=== PATIENT | female | born 1980 | race Caucasian/White ===

== ENCOUNTER 2017-08-04 10:26 | Emergency (ER) | payer OTHER ==
[~2017-08-04] VITALS: Ht 175.3 cm; Wt 119.7 kg
[~2017-08-04 10:26] MED LIST: ORPH100T PO; TRAM1TAB98 PO
[2017-08-04] MEDS ORDERED: ULTRACET PO (13:00)
[2017-08-04] MEDS ORDERED: PERCOCET 5-3251 EACH PO ×2 (13:01→13:02)
== END 2017-08-04 13:16 | disposition home or self-care (01) ==
LOC: ER 10:26
DX: S93.602A Unspecified sprain of left foot, initial encounter (principal); W18.39XA Other fall on same level, initial encounter; Y93.89 Activity, other specified; Y92.098 Other place in other non-institutional residence as the place of occurrence of the external cause; Y99.8 Other external cause status

== ENCOUNTER 2018-03-30 08:32 | Emergency (ER) | payer OTHER ==
[~2018-03-30] VITALS: Ht 175.3 cm; Wt 116.1 kg
[~2018-03-30 08:32] MED LIST changes: +PERCOCET 5-3251 EACH PO; +ULTRACET PO
== END 2018-03-30 12:23 | disposition home or self-care (01) ==
LOC: ER 08:32
DX: B34.9 Viral infection, unspecified (principal)

== ENCOUNTER 2018-07-01 05:43 | Emergency (ER) | payer OTHER ==
[~2018-07-01] VITALS: Ht 175.3 cm; Wt 68.0 kg
== END 2018-07-01 10:53 | disposition home or self-care (01) ==
LOC: ER 05:43
DX: R13.19 Other dysphagia (principal)

== ENCOUNTER → 2018-09-23 | Outpatient (CLI) | payer OTHER | END | disposition home or self-care (01) | LOC: TOM 09:58 | DX: N28.89 Other specified disorders of kidney and ureter (principal); N23 Unspecified renal colic ==

== ENCOUNTER 2018-09-24 10:01 | Emergency (ER) | payer OTHER ==
[~2018-09-24] VITALS: Ht 175.3 cm; Wt 115.2 kg
== END 2018-09-24 22:24 | disposition home or self-care (01) ==
LOC: ER 10:01
DX: K58.9 Irritable bowel syndrome, unspecified (principal)

== ENCOUNTER 2018-12-01 08:24 | Outpatient (CLI) | payer OTHER | END 2018-12-01 08:38 | disposition home or self-care (01) | LOC: NUCLEAR 08:24 | DX: K80.80 Other cholelithiasis without obstruction (principal) | CPT/HCPCS: 78227; A9537 ==

== ENCOUNTER → 2018-12-13 | Outpatient (CLI) | payer OTHER | END | disposition home or self-care (01) | LOC: SONOGRAMA 08:32 | DX: E04.2 Nontoxic multinodular goiter (principal) ==

== ENCOUNTER 2019-02-25 10:23 | Emergency (ER) | payer OTHER ==
[~2019-02-25] VITALS: Ht 175.3 cm; Wt 97.1 kg
== END 2019-02-25 12:19 | disposition home or self-care (01) ==
LOC: ER 10:23
DX: S20.222A Contusion of left back wall of thorax, initial encounter (principal); S20.221A Contusion of right back wall of thorax, initial encounter; V49.9XXA Car occupant (driver) (passenger) injured in unspecified traffic accident, initial encounter; Y93.89 Activity, other specified; Y92.488 Other paved roadways as the place of occurrence of the external cause; Y99.8 Other external cause status

== ENCOUNTER 2019-04-06 08:01 | Outpatient (CLI) | payer OTHER | END 2019-04-06 15:00 | disposition home or self-care (01) | LOC: LAB 08:01 | DX: N39.0 Urinary tract infection, site not specified (principal) ==

== ENCOUNTER 2019-08-11 07:14 | Outpatient (CLI) | payer OTHER | END 2019-08-11 08:04 | disposition home or self-care (01) | LOC: SONOGRAMA 07:14 | DX: E04.1 Nontoxic single thyroid nodule (principal) ==

== ENCOUNTER 2019-08-11 07:43 | Outpatient (CLI) | payer OTHER | END 2019-08-11 07:56 | disposition home or self-care (01) | LOC: LAB 07:43 | DX: I10 Essential (primary) hypertension (principal); E11.65 Type 2 diabetes mellitus with hyperglycemia; E03.8 Other specified hypothyroidism; E78.49 Other hyperlipidemia; E55.9 Vitamin D deficiency, unspecified ==

== ENCOUNTER 2019-11-30 06:50 | Outpatient (CLI) | payer OTHER | END 2019-11-30 07:54 | disposition home or self-care (01) | LOC: RAD 06:50 | DX: E04.1 Nontoxic single thyroid nodule (principal); R10.84 Generalized abdominal pain; K21.9 Gastro-esophageal reflux disease without esophagitis ==

== ENCOUNTER 2019-12-08 06:05 | Emergency (ER) | payer OTHER ==
[~2019-12-08] VITALS: Ht 175.3 cm; Wt 80.7 kg
== END 2019-12-08 10:28 | disposition home or self-care (01) ==
LOC: ER 06:05
DX: R00.2 Palpitations (principal)

== ENCOUNTER → 2019-12-15 06:32 | Outpatient (CLI) | payer OTHER | END | disposition home or self-care (01) | LOC: LAB 06:32 | PROVIDERS: ATTEND Internal Medicine Sports Medicine | DX: E05.90 Thyrotoxicosis, unspecified without thyrotoxic crisis or storm (principal) ==

== ENCOUNTER 2019-12-19 12:23 | Outpatient (CLI) | payer OTHER | END 2019-12-19 12:31 | disposition home or self-care (01) | LOC: LAB 12:23 | PROVIDERS: ATTEND Internal Medicine Sports Medicine | DX: N30.00 Acute cystitis without hematuria (principal) ==

== ENCOUNTER 2019-12-26 08:57 | Outpatient (CLI) | payer OTHER | END 2019-12-26 09:27 | disposition home or self-care (01) | LOC: NUCLEAR 08:57 | PROVIDERS: ATTEND Internal Medicine Sports Medicine | DX: E05.80 Other thyrotoxicosis without thyrotoxic crisis or storm (principal) | CPT/HCPCS: 78012; A9531 ==

== ENCOUNTER 2019-12-27 08:34 | Outpatient (CLI) | payer OTHER | END 2019-12-27 08:43 | disposition home or self-care (01) | LOC: NUCLEAR 08:34 | PROVIDERS: ATTEND Internal Medicine Sports Medicine | DX: E05.80 Other thyrotoxicosis without thyrotoxic crisis or storm (principal) | CPT/HCPCS: 78013; A9512 ==

== ENCOUNTER 2020-02-08 06:18 | Outpatient (CLI) | payer OTHER | END 2020-02-08 06:44 | disposition home or self-care (01) | LOC: LAB 06:18 | PROVIDERS: ATTEND Internal Medicine Sports Medicine | DX: E04.1 Nontoxic single thyroid nodule (principal); E05.90 Thyrotoxicosis, unspecified without thyrotoxic crisis or storm; E04.8 Other specified nontoxic goiter ==

== ENCOUNTER 2020-03-06 06:24 | Outpatient (CLI) | payer OTHER | END 2020-03-06 11:44 | disposition home or self-care (01) | LOC: LAB 06:24 | DX: I87.2 Venous insufficiency (chronic) (peripheral) (principal); M79.81 Nontraumatic hematoma of soft tissue; Z13.1 Encounter for screening for diabetes mellitus; Z13.220 Encounter for screening for lipoid disorders; E04.1 Nontoxic single thyroid nodule; Z13.89 Encounter for screening for other disorder ==

== ENCOUNTER 2020-03-06 07:04 | Outpatient (CLI) | payer OTHER | END 2020-03-06 10:05 | disposition home or self-care (01) | LOC: NUCLEAR 07:04 | DX: I87.2 Venous insufficiency (chronic) (peripheral) (principal) ==

== ENCOUNTER 2020-07-20 06:43 | Outpatient (CLI) | payer OTHER | END 2020-07-20 07:56 | disposition home or self-care (01) | LOC: LAB 06:43 | PROVIDERS: ATTEND Internal Medicine Sports Medicine | DX: D64.89 Other specified anemias (principal); E11.9 Type 2 diabetes mellitus without complications; E78.2 Mixed hyperlipidemia; E03.8 Other specified hypothyroidism; I10 Essential (primary) hypertension ==

== ENCOUNTER 2020-09-14 06:30 | Outpatient (CLI) | payer OTHER | END 2020-09-14 06:36 | disposition home or self-care (01) | LOC: LAB 06:30 | DX: R30.0 Dysuria (principal) ==

== ENCOUNTER 2021-01-09 08:00 | Outpatient (CLI) | payer OTHER | END 2021-01-09 08:30 | disposition home or self-care (01) | LOC: PPH VACUNA 08:00 | DX: Z23 Encounter for immunization (principal) ==

== ENCOUNTER 2021-01-28 08:00 | Outpatient (CLI) | payer OTHER | END 2021-01-28 08:30 | disposition home or self-care (01) | LOC: PPH VACUNA 08:00 | DX: Z23 Encounter for immunization (principal) ==

== ENCOUNTER 2021-01-28 09:21 | Outpatient (CLI) | payer OTHER | END 2021-01-28 09:34 | disposition home or self-care (01) | LOC: SONOGRAMA 09:21 | DX: E04.1 Nontoxic single thyroid nodule (principal); E03.8 Other specified hypothyroidism; R10.84 Generalized abdominal pain ==

== ENCOUNTER → 2021-04-19 07:21 | Outpatient (CLI) | payer OTHER | END | disposition home or self-care (01) | LOC: LAB 07:21 | DX: R23.3 Spontaneous ecchymoses (principal) ==

== ENCOUNTER → 2021-04-29 11:11 | Outpatient (CLI) | payer OTHER | END | disposition home or self-care (01) | LOC: LAB 11:11 | DX: M79.81 Nontraumatic hematoma of soft tissue (principal) ==

== ENCOUNTER 2021-05-07 07:19 | Outpatient (CLI) | payer OTHER | END 2021-05-07 07:53 | disposition home or self-care (01) | LOC: MAMO-SONO 07:19 | DX: Q51.818 Other congenital malformations of uterus (principal); N64.89 Other specified disorders of breast; Z12.31 Encounter for screening mammogram for malignant neoplasm of breast ==

== ENCOUNTER 2021-05-31 08:17 | Emergency (ER) | payer OTHER ==
[~2021-05-31] VITALS: Ht 175.3 cm; Wt 99.8 kg
[2021-05-31] MEDS ORDERED: MACRODANTIN100 M1 PO (12:47)
[2021-05-31] MEDS ORDERED: PYRIDIUM DS200 MG PO (12:47)
== END 2021-05-31 12:57 ==
LOC: ER 08:17
DX: N39.0 Urinary tract infection, site not specified (principal)

== ENCOUNTER 2021-06-13 07:07 | Outpatient (CLI) | payer OTHER ==
[~2021-06-13 07:07] MED LIST changes: +MACRODANTIN100 M1 PO; +PYRIDIUM DS200 MG PO
== END 2021-06-13 07:18 | disposition home or self-care (01) ==
LOC: LAB 07:07
PROVIDERS: ATTEND Internal Medicine Sports Medicine
DX: E55.9 Vitamin D deficiency, unspecified (principal)

== ENCOUNTER 2021-07-01 10:58 | Emergency (ER) | payer OTHER ==
[~2021-07-01] VITALS: Ht 175.3 cm; Wt 99.3 kg
== END 2021-07-01 14:04 | disposition home or self-care (01) ==
LOC: ER 10:58
DX: M25.561 Pain in right knee (principal)

== ENCOUNTER 2021-08-01 09:00 | Outpatient (CLI) | payer OTHER | END 2021-08-01 09:15 | disposition home or self-care (01) | LOC: PPH VACUNA 09:00 | PROVIDERS: ATTEND Emergency Medicine Pediatric Emergency Medicine | DX: Z23 Encounter for immunization (principal) ==

== ENCOUNTER 2021-08-14 19:20 | Emergency (ER) | payer OTHER ==
[~2021-08-14] VITALS: Ht 175.3 cm; Wt 98.4 kg
[2021-08-14] MEDS ORDERED: PYRIDIUM100 MG PO (23:09)
[2021-08-14] MEDS ORDERED: CIPRO500 MG PO (23:09)
== END 2021-08-15 | disposition home or self-care (01) ==
LOC: ER 19:20
DX: N39.0 Urinary tract infection, site not specified (principal); Z88.2 Allergy status to sulfonamides; Z88.6 Allergy status to analgesic agent

== ENCOUNTER 2021-08-22 06:55 | Outpatient (CLI) | payer OTHER ==
[~2021-08-22 06:55] MED LIST changes: +CIPRO500 MG PO; +PYRIDIUM100 MG PO
== END 2021-08-22 08:12 | disposition home or self-care (01) ==
LOC: MRI 06:55
DX: M25.561 Pain in right knee (principal)
CPT/HCPCS: 73721

== ENCOUNTER 2021-08-29 08:01 | Outpatient (CLI) | payer OTHER | END 2021-08-29 08:29 | disposition home or self-care (01) | LOC: SONOGRAMA 08:01 | DX: R22.42 Localized swelling, mass and lump, left lower limb (principal) ==

== ENCOUNTER 2021-09-16 07:32 | Emergency (ER) | payer OTHER ==
[~2021-09-16] VITALS: Ht 175.3 cm; Wt 97.1 kg
== END 2021-09-16 12:16 | disposition home or self-care (01) ==
LOC: ER 07:32
DX: B34.9 Viral infection, unspecified (principal); Z88.6 Allergy status to analgesic agent; Z88.2 Allergy status to sulfonamides; Z20.822 Contact with and (suspected) exposure to COVID-19

== ENCOUNTER 2021-12-06 07:22 | Outpatient (CLI) | payer OTHER | END 2021-12-06 08:18 | disposition home or self-care (01) | LOC: SONOGRAMA 07:22 | PROVIDERS: ATTEND Internal Medicine Sports Medicine | DX: E03.9 Hypothyroidism, unspecified (principal) ==

== ENCOUNTER → 2021-12-06 | Outpatient (CLI) | payer OTHER | END | disposition home or self-care (01) | LOC: LAB 06:23 | DX: E55.9 Vitamin D deficiency, unspecified (principal); D64.9 Anemia, unspecified; E78.2 Mixed hyperlipidemia; E11.9 Type 2 diabetes mellitus without complications; E03.8 Other specified hypothyroidism; I10 Essential (primary) hypertension ==

== ENCOUNTER 2022-03-24 12:42 | Emergency (ER) | payer OTHER ==
[~2022-03-24] VITALS: Ht 175.3 cm; Wt 98.9 kg
== END 2022-03-24 15:45 | disposition home or self-care (01) ==
LOC: ER 12:42
DX: M25.562 Pain in left knee (principal); Z88.6 Allergy status to analgesic agent; Z88.8 Allergy status to other drugs, medicaments and biological substances

== ENCOUNTER 2022-06-23 06:25 | Outpatient (CLI) | payer OTHER | END 2022-06-23 06:26 | disposition home or self-care (01) | LOC: LAB 06:25 | DX: D64.9 Anemia, unspecified (principal); E11.9 Type 2 diabetes mellitus without complications; E78.2 Mixed hyperlipidemia; I10 Essential (primary) hypertension; E03.8 Other specified hypothyroidism; E55.9 Vitamin D deficiency, unspecified ==

== ENCOUNTER 2022-07-17 06:54 | Outpatient (CLI) | payer OTHER | END 2022-07-17 07:14 | disposition home or self-care (01) | LOC: RAD 06:54 | DX: Z12.31 Encounter for screening mammogram for malignant neoplasm of breast (principal); N63.0 Unspecified lump in unspecified breast; M25.562 Pain in left knee | CPT/HCPCS: 73721 ==

== ENCOUNTER 2022-11-20 07:16 | Outpatient (CLI) | payer OTHER | END 2022-11-20 07:20 | disposition home or self-care (01) | LOC: LAB 07:16 | DX: R94.6 Abnormal results of thyroid function studies (principal); E04.1 Nontoxic single thyroid nodule; E66.9 Obesity, unspecified; Z12.11 Encounter for screening for malignant neoplasm of colon; E55.9 Vitamin D deficiency, unspecified ==

== ENCOUNTER 2022-11-20 08:01 | Outpatient (CLI) | payer OTHER | END 2022-11-20 08:45 | disposition home or self-care (01) | LOC: RAD 08:01 | DX: E04.1 Nontoxic single thyroid nodule (principal) ==

== ENCOUNTER 2022-11-25 07:34 | Outpatient (CLI) | payer OTHER | END 2022-11-25 07:40 | disposition home or self-care (01) | LOC: RAD 07:34 | DX: M25.559 Pain in unspecified hip (principal); R10.2 Pelvic and perineal pain ==

== ENCOUNTER 2022-12-04 17:45 | Emergency (ER) | payer OTHER ==
[~2022-12-04] VITALS: Ht 175.3 cm; Wt 99.8 kg
[2022-12-04] MEDS ORDERED: DOLOGEN CAPLET1 EACH PO (20:36)
== END 2022-12-04 21:05 | disposition home or self-care (01) ==
LOC: ER 17:45
DX: R10.31 Right lower quadrant pain (principal); Z88.6 Allergy status to analgesic agent; Z88.2 Allergy status to sulfonamides

== ENCOUNTER 2023-01-15 00:19 | Emergency (ER) | payer OTHER ==
[~2023-01-15] VITALS: Ht 175.3 cm; Wt 99.8 kg
[~2023-01-15 00:19] MED LIST changes: +DOLOGEN CAPLET1 EACH PO
== END 2023-01-15 04:49 | disposition home or self-care (01) ==
LOC: ER 00:19
DX: K30 Functional dyspepsia (principal); R10.9 Unspecified abdominal pain; Z88.6 Allergy status to analgesic agent; Z88.2 Allergy status to sulfonamides

== ENCOUNTER 2023-05-07 06:14 | Outpatient (CLI) | payer OTHER ==
[2023-05-07 07:30] LABS: PH,URINE 6.5 (5.0-8.0); URINE APPEARANCE Clear; URINE BILIRRUBIN Negative (NEGATIVE); URINE BLOOD Negative; URINE COLOR Yellow; URINE GLUCOSE Negative (NEGATIVE); URINE LEUKOCYTE Negative; URINE NITRATE Negative; URINE PROTEIN Negative (NEGATIVE)
[2023-05-07 07:34] LABS: URINE BACTERIA 794.9 uL (0.0-1933); URINE EPITHELIAL CELLS 56.3 uL (0.0-38.8); URINE WBC 7.1 uL (0.0-23.2)
[2023-05-07 07:35] LABS: HEMATOCRIT 40.2 % (36.0-45.00); HEMOGLOBIN 13.2 g/dL (12.0-15.00); MEAN CELL VOLUME 90.3 fL (80.00-100.00); MEAN CORPUSCULAR HEMOGLOBIN 29.7 pg (27.00-32.0); MEAN CORPUSCULAR HGB CONC 32.9 g/dl (32.0-36.0); PLATELET COUNT 244 K/uL (150-450); RED BLOOD COUNT 4.45 M/uL (4.00-6.00); RED CELL DISTRIBUTION WIDTH 13.3 % (11.5-14.5)
[2023-05-07 08:03] LABS: ALBUMIN 3.7 gm/dL (3.4-5.0); BILIRUBIN TOTAL 0.66 mg/dL (0.3-1.2); CHOL HDL RATIO 2.7 (0-5.0); CREATININE SERUM 0.51 mg/dL (0.55-1.02); GFR 132.89; GLOBULINA 3.6 G/DL (2.4-3.5); POTASSIUM 3.94 mEq/L (3.5-5.1); T4 FREE 0.87 NG/ML (0.76-1.46); TOTAL PROTEIN 7.3 gm/dL (6.4-8.2); TSH 0.423 uIU/mL (0.358-3.74)
== END 2023-05-07 06:17 | disposition home or self-care (01) ==
LOC: LAB 06:14
PROVIDERS: ATTEND Internal Medicine Sports Medicine
DX: D64.9 Anemia, unspecified (principal); E11.9 Type 2 diabetes mellitus without complications; E78.2 Mixed hyperlipidemia; I10 Essential (primary) hypertension; E03.8 Other specified hypothyroidism; E55.9 Vitamin D deficiency, unspecified

== ENCOUNTER 2023-06-11 20:21 | Emergency (ER) | payer OTHER ==
[~2023-06-11] VITALS: Ht 175.3 cm; Wt 100.7 kg
== END 2023-06-11 21:43 | disposition home or self-care (01) ==
LOC: ER 20:22
DX: J37.0 Chronic laryngitis (principal)

== ENCOUNTER 2023-06-16 08:02 | Outpatient (CLI) | payer OTHER | END 2023-06-16 08:22 | disposition home or self-care (01) | LOC: SONOGRAMA 08:02 | PROVIDERS: ATTEND Internal Medicine Gastroenterology | DX: R10.11 Right upper quadrant pain (principal); Z88.2 Allergy status to sulfonamides; Z88.6 Allergy status to analgesic agent ==

== ENCOUNTER 2024-05-11 06:31 | Outpatient (CLI) | payer OTHER ==
[2024-05-11 07:14] LABS: HEMATOCRIT 39.2 % (36.0-45.00); HEMOGLOBIN 13.4 g/dL (12.0-15.00); MEAN CELL VOLUME 89.7 fL (80.00-100.00); MEAN CORPUSCULAR HEMOGLOBIN 30.6 pg (27.00-32.0); MEAN CORPUSCULAR HGB CONC 34.1 g/dl (32.0-36.0); PLATELET COUNT 249 K/uL (150-450); RED BLOOD COUNT 4.37 M/uL (4.00-6.00); RED CELL DISTRIBUTION WIDTH 13.7 % (11.5-14.5)
[2024-05-11 07:26] LABS: PH,URINE 5.5 (5.0-8.0); URINE APPEARANCE Clear; URINE BILIRRUBIN Negative (NEGATIVE); URINE BLOOD Negative; URINE COLOR Yellow; URINE GLUCOSE Negative (NEGATIVE); URINE KETONE Negative (NEGATIVE); URINE LEUKOCYTE Negative; URINE NITRATE Negative; URINE PROTEIN Negative (NEGATIVE); URINE UROBILINOGEN 0.2 E.U./dl
[2024-05-11 07:30] LABS: URINE BACTERIA 2054.8 uL (0.0-1933); URINE RBC 4.7 uL (0.0-20.8); URINE WBC 58.5 uL (0.0-23.2)
[2024-05-11 08:07] LABS: ALBUMIN 3.7 gm/dL (3.4-5.0); BILIRUBIN TOTAL 0.51 mg/dL (0.3-1.2); CALCIUM 8.9 mg/dL (8.5-10.1); CHOL HDL RATIO 2.7 (0-5.0); CREATININE SERUM 0.42 mg/dL (0.55-1.02); GFR 165.46; GLOBULINA 3.8 G/DL (2.4-3.5); POTASSIUM 3.78 mEq/L (3.5-5.1); T4 FREE 0.95 NG/ML (0.76-1.46); TOTAL PROTEIN 7.5 gm/dL (6.4-8.2); TSH 0.531 uIU/mL (0.358-3.74)
== END 2024-05-11 06:32 | disposition home or self-care (01) ==
LOC: LAB 06:31
PROVIDERS: ATTEND Internal Medicine Sports Medicine
DX: D64.9 Anemia, unspecified (principal); E11.9 Type 2 diabetes mellitus without complications; E78.2 Mixed hyperlipidemia; I10 Essential (primary) hypertension; E03.8 Other specified hypothyroidism

== ENCOUNTER 2024-08-08 07:50 | Emergency (ER) | payer OTHER ==
[~2024-08-08] VITALS: Ht 175.3 cm; Wt 97.5 kg
[2024-08-08] MEDS ORDERED: METHYLPREDNISOLONE SOD SUCC 40 MG VIAL IM ONE (09:15)
[2024-08-08] MEDS ORDERED: LORATADINE/PSEUDOEPHEDRINE 1 TAB TAB.SR.24H PO ONE (09:15)
[2024-08-08] MEDS ORDERED: FAMOtidine 10 MG/ML (4ML VIAL) IV PUSH ONE (09:15)
[2024-08-08] MEDS ORDERED: BENZONATATE 200 MG CAPSULE PO ONE (09:15)
[2024-08-08] MEDS ORDERED: CEFTRIAXONE SODIUM 1,000 MG VIAL IM ONE (09:15)
[2024-08-08] MEDS ORDERED: METHYLPREDNISOLONE SOD SUCC 40 MG VIAL ONE (09:30)
[2024-08-08] MEDS ORDERED: LIDOCAINE HCL 1% 10ML VIAL ONE (09:31)
[2024-08-08] MEDS ORDERED: FAMOTIDINE/PF 20 MG/2 ML VIAL ONE (09:31)
[2024-08-08] MEDS ORDERED: CEFTRIAXONE SODIUM 1,000 MG VIAL ONE (09:32)
[2024-08-08 10:15] LABS: HEMATOCRIT 43.5 % (36.0-45.00); HEMOGLOBIN 14.8 g/dL (12.0-15.00); MEAN CELL VOLUME 91.3 fL (80.00-100.00); MEAN CORPUSCULAR HEMOGLOBIN 31.1 pg (27.00-32.0); MEAN CORPUSCULAR HGB CONC 34.1 g/dl (32.0-36.0); PLATELET COUNT 268 K/uL (150-450); RED BLOOD COUNT 4.76 M/uL (4.00-6.00); RED CELL DISTRIBUTION WIDTH 13.7 % (11.5-14.5)
[2024-08-08] MEDS ORDERED: BENZONATATE200 M1 PO (11:30)
[2024-08-08] MEDS ORDERED: SINGULAIR10 MG PO (11:30)
[2024-08-08] MEDS ORDERED: ZOFRAN8 MG PO (11:30)
[2024-08-08] MEDS ORDERED: ZITHROMAX500 MG PO (11:30)
[2024-08-08] MEDS ORDERED: PEPCID AC20 MG PO (11:30)
== END 2024-08-08 12:09 | disposition home or self-care (01) ==
LOC: ER 07:53
PROVIDERS: General Practice
DX: J00 Acute nasopharyngitis [common cold] (principal); Z88.6 Allergy status to analgesic agent; Z88.2 Allergy status to sulfonamides; I73.89 Other specified peripheral vascular diseases

== ENCOUNTER 2024-08-28 00:26 | Emergency (ER) | payer OTHER ==
[~2024-08-28] VITALS: Ht 175.3 cm; Wt 98.9 kg
[~2024-08-28 00:26] MED LIST changes: +BENZONATATE200 M1 PO; +PEPCID AC20 MG PO; +SINGULAIR10 MG PO; +ZITHROMAX500 MG PO; +ZOFRAN8 MG PO
[2024-08-28] MEDS ORDERED: DEXAMETHASONE SODIUM PHOSPHATE 4 MG/ML VIAL IM ONE (01:15)
[2024-08-28] MEDS ORDERED: GUAIFENESIN/DEXTROMETHORPHAN 100MG/10ML BLIST.PACK PO ONE (01:15)
[2024-08-28] MEDS ORDERED: AZITHROMYCIN 500 MG TABLET PO ONE ×2 (01:15→01:20)
[2024-08-28] MEDS ORDERED: DEXAMETHASONE SODIUM PHOSPHATE 4 MG/ML VIAL ONE (01:20)
[2024-08-28] MEDS ORDERED: GUAIFEN/DEXTROMETHORPHAN/PE 10 ML BLIST.PACK PO ONE (01:20)
[2024-08-28 01:53] LABS: HEMATOCRIT 40.3 % (36.0-45.00); HEMOGLOBIN 14.3 g/dL (12.0-15.00); MEAN CORPUSCULAR HEMOGLOBIN 31.7 pg (27.00-32.0); MEAN CORPUSCULAR HGB CONC 35.6 g/dl (32.0-36.0); PLATELET COUNT 263 K/uL (150-450); RED BLOOD COUNT 4.53 M/uL (4.00-6.00); RED CELL DISTRIBUTION WIDTH 13.2 % (11.5-14.5)
[2024-08-28] MEDS ORDERED: PAXLOVID 300-11 EAC1 PO (02:15)
[2024-08-28] MEDS ORDERED: TUSNEL LIQUID178 ML PO (02:15)
== END 2024-08-28 02:38 | disposition home or self-care (01) ==
LOC: ER 00:28
PROVIDERS: General Practice
DX: U07.1 COVID-19 (principal); Z88.2 Allergy status to sulfonamides; Z88.6 Allergy status to analgesic agent

== ENCOUNTER → 2024-09-16 | Outpatient (CLI) | payer OTHER ==
[~2024-09-16] MED LIST changes: +PAXLOVID 300-11 EAC1 PO; +TUSNEL LIQUID178 ML PO
== END | disposition home or self-care (01) ==
LOC: SONOGRAMA 07:32
DX: D06.7 Carcinoma in situ of other parts of cervix (principal); N83.291 Other ovarian cyst, right side; Z85.41 Personal history of malignant neoplasm of cervix uteri

== ENCOUNTER 2024-11-10 07:20 | Outpatient (CLI) | payer OTHER ==
[2024-11-10 08:29] LABS: HEMATOCRIT 41.9 % (36.0-45.00); MEAN CELL VOLUME 91.2 fL (80.00-100.00); MEAN CORPUSCULAR HEMOGLOBIN 30.4 pg (27.00-32.0); MEAN CORPUSCULAR HGB CONC 33.4 g/dl (32.0-36.0); PLATELET COUNT 280 K/uL (150-450); RED CELL DISTRIBUTION WIDTH 13.3 % (11.5-14.5)
[2024-11-10 09:18] LABS: URINE APPEARANCE Clear; URINE BILIRRUBIN Negative (NEGATIVE); URINE BLOOD Negative; URINE COLOR Yellow; URINE GLUCOSE Negative (NEGATIVE); URINE KETONE Negative (NEGATIVE); URINE LEUKOCYTE Negative; URINE NITRATE Negative; URINE PROTEIN Negative (NEGATIVE); URINE UROBILINOGEN 0.2 E.U./dl
[2024-11-10 09:19] LABS: URINE BACTERIA 744.1 uL (0.0-1933); URINE EPITHELIAL CELLS 41.6 uL (0.0-38.8); URINE RBC 4.1 uL (0.0-20.8); URINE WBC 22.1 uL (0.0-23.2)
[2024-11-10 09:32] LABS: URINE CAST 0.14 uL (0.0-1.40)
[2024-11-10 09:42] LABS: ALBUMIN 3.6 gm/dL (3.4-5.0); BILIRUBIN TOTAL 0.4 mg/dL (0.3-1.2); CALCIUM 9.4 mg/dL (8.5-10.1); CHOL HDL RATIO 2.8 (0-5.0); CREATININE SERUM 0.47 mg/dL (0.55-1.02); GFR 144.63; POTASSIUM 4.58 mEq/L (3.5-5.1); T4 FREE 0.97 NG/ML (0.76-1.46); TOTAL PROTEIN 7.6 gm/dL (6.4-8.2)
[2024-11-10 09:46] LABS: TSH 0.285 uIU/mL (0.358-3.74)
== END 2024-11-10 07:33 | disposition home or self-care (01) ==
LOC: LAB 07:20
DX: D64.9 Anemia, unspecified (principal); E11.9 Type 2 diabetes mellitus without complications; E78.2 Mixed hyperlipidemia; I10 Essential (primary) hypertension; E03.8 Other specified hypothyroidism; E55.9 Vitamin D deficiency, unspecified; E04.1 Nontoxic single thyroid nodule; E66.9 Obesity, unspecified; Z12.11 Encounter for screening for malignant neoplasm of colon; Z11.4 Encounter for screening for human immunodeficiency virus [HIV]; Z11.3 Encounter for screening for infections with a predominantly sexual mode of transmission

== ENCOUNTER 2024-11-10 07:50 | Outpatient (CLI) | payer OTHER | END 2024-11-10 07:52 | disposition home or self-care (01) | LOC: MAMO-SONO 07:50 | DX: E04.1 Nontoxic single thyroid nodule (principal); Z12.31 Encounter for screening mammogram for malignant neoplasm of breast ==

== ENCOUNTER → 2025-02-24 07:23 | Outpatient (CLI) | payer OTHER ==
[2025-02-24 08:37] LABS: FREE TRIODOTIRONINE 2.58 pg/ml (2.18-3.98); T4 FREE 0.92 NG/ML (0.76-1.46); TSH 0.473 uIU/mL (0.358-3.74)
== END | disposition home or self-care (01) ==
LOC: LAB 07:23
PROVIDERS: ATTEND Internal Medicine Sports Medicine
DX: E03.9 Hypothyroidism, unspecified (principal); E04.1 Nontoxic single thyroid nodule; E04.9 Nontoxic goiter, unspecified

== ENCOUNTER 2025-05-24 07:37 | Emergency (ER) | payer OTHER ==
[~2025-05-24] VITALS: Ht 175.3 cm; Wt 98.9 kg
[2025-05-24 07:43] VITALS: BP 100/65; O2SAT 99
[2025-05-24 09:49] LABS: BASO % 0.4 % (0.1-1.2); EOS # 0.14 (0.04-0.54); EOS % 1.3 % (0.7-7.0); LYMPH # 1.64 (1.18-3.74); LYMPH % 15.5 % (19.3-53.1); MEAN PLATELET VOLUME 9.10 fl (9.4-12.4); MONO # 0.38 (0.24-0.82); MONO % 3.6 % (4.7-12.5); NEUT # 8.34 (1.56-6.13); NEUT % 78.9 % (34.0-71.1); RED CELL DISTRIBUTION WIDTH 12.7 % (11.6-14.4)
[2025-05-24 10:05] LABS: URINE APPEARANCE Cloudy; URINE BILIRRUBIN Negative (NEGATIVE); URINE BLOOD Moderate; URINE COLOR Yellow; URINE GLUCOSE Negative (NEGATIVE); URINE KETONE Negative (NEGATIVE); URINE LEUKOCYTE Moderate; URINE NITRATE Positive; URINE PROTEIN 30 (NEGATIVE); URINE UROBILINOGEN 0.2 E.U./dl
[2025-05-24 10:10] LABS: URINE EPITHELIAL CELLS 25.8 uL (0.0-38.8); URINE RBC 316.2 uL (0.0-20.8); URINE WBC 521.3 uL (0.0-23.2)
[2025-05-24 10:16] LABS: URINE BACTERIA > 9821.5 uL (0.0-1933); URINE CAST 0.14 uL (0.0-1.40)
[2025-05-24 10:27] LABS: ALT/SGPT 23.0 U/L (12-78); AST/SGOT 17.0 U/L (15-37); BILIRUBIN TOTAL 0.58 mg/dL (0.3-1.2); BUN CREA RATIO 17.0 (7.0-25.0); CREATININE SERUM 0.46 mg/dL (0.55-1.02); GFR 148.26; GLOBULINA 4.5 G/DL (2.4-3.5); GLUCOSE FASTING 92.0 mg/dL (65-100); OSMOLALITY SERUM 279.0 MOSM/KG (275-295)
[2025-05-24] MEDS ORDERED: CEFTRIAXONE SODIUM 1,000 MG VIAL IM STA (10:49)
[2025-05-24] MEDS ORDERED: CEFTRIAXONE SODIUM 1,000 MG VIAL ONE (11:44)
[2025-05-24] MEDS ORDERED: LIDOCAINE HCL/MPF 1% 5ML VIAL IJ ONE (11:45)
== END 2025-05-24 12:09 | disposition home or self-care (01) ==
LOC: ER 07:37
PROVIDERS: General Practice
DX: N39.0 Urinary tract infection, site not specified (principal); R30.0 Dysuria; Z88.6 Allergy status to analgesic agent; Z88.2 Allergy status to sulfonamides

== ENCOUNTER → 2025-05-29 07:12 | Outpatient (CLI) | payer OTHER ==
[2025-05-29 09:26] LABS: T4 FREE 1.08 NG/ML (0.76-1.46); TSH 0.409 uIU/mL (0.358-3.74)
[2025-05-29 14:41] LABS: ob NEGATIVE (NEGATIVE)
== END | disposition home or self-care (01) ==
LOC: LAB 07:12
PROVIDERS: ATTEND Internal Medicine Sports Medicine
DX: E03.9 Hypothyroidism, unspecified (principal); E04.1 Nontoxic single thyroid nodule; E04.9 Nontoxic goiter, unspecified